=== PATIENT | female | born 1960 | race Caucasian/White ===

== ENCOUNTER 2017-04-19 10:53 | Day surgery (SDC) | payer OTHER ==
[~2017-04-19] VITALS: Ht 137.2 cm; Wt 69.9 kg
[2017-04-19] VITALS (7 sets, daily range): BP systolic 116–158; BP diastolic 61–79; PULSE 62–90; RESP 13–18; Ht 137.2 cm; Wt 69.9 kg
[~2017-04-19 10:53] MED LIST: FENO200 PO; GABA100C14 PO; KETOROLAC 30 MG INJ ONE; LEVO50TA74 PO; LISI-313 PO; METF500T4 PO
[2017-04-19] MEDS ORDERED: CARB15DR BOTH EYES (11:28)
[2017-04-19] MEDS ORDERED: LOSA50TA6 PO (11:29)
[2017-04-19] MEDS ORDERED: LEVO50TA74 PO (11:29)
[2017-04-19] MEDS ORDERED: PRAV40TA76 PO (11:29)
[2017-04-19] MEDS ORDERED: METF500T4 PO (11:30)
[2017-04-19] MEDS ORDERED: EMPA25TA PO (11:30)
[2017-04-19] MEDS ORDERED: SULF1TAB31 PO (11:33)
[2017-04-19] MEDS ORDERED: HYDR-906 PO (11:34)
[2017-04-19] MEDS ORDERED: CHRO1TAB6 PO (11:35)
[2017-04-19] MEDS ORDERED: DEXAMETHASONE 4 MG/ML 1 ML INJ ONE (11:51)
[2017-04-19] MEDS ORDERED: BUPIVACAINE 0.5%/EPI (SDV) 10 ML INJ ONE (11:51)
[2017-04-19] MEDS ORDERED: POVIDONE IODINE 10% 28.4 GM OINT ONE (11:51)
[2017-04-19] MEDS ORDERED: BUPIVACAINE 0.5% (SDV) 30 ML INJ ONE (11:52)
[2017-04-19] MEDS ORDERED: INSULIN ASPART [NOVOLOG] 3 ML PEN SC ONE (12:00)
[2017-04-19] MEDS ORDERED: ONDANSETRON 4 MG INJ IV PRN (12:00)
[2017-04-19] MEDS ORDERED: HYDROmorphONE (0.2 MG/ML) 10ML SYG IV PRN ×2 (12:00)
[2017-04-19] MEDS ORDERED: PROCHLORPERAZINE 10 MG INJ IV PRN (12:00)
[2017-04-19] MEDS ORDERED: hydrALAzine 20 MG INJ IV PRN (12:00)
[2017-04-19] MEDS ORDERED: MEPERIDINE 25 MG INJ IV PRN (12:00)
[2017-04-19] MEDS ORDERED: LABETALOL HCL 20MG INJ IV PRN (12:00)
[2017-04-19] MEDS ORDERED: FENTAnyl 50 MCG/ML VIAL IV PRN (12:00)
[2017-04-19] MEDS ORDERED: HYPOGLYCEMIA PROTOCOL when Glucose is <70 mg/dL or symptomatic <90 mg/dL. XX ONE (12:00)
[2017-04-19] MEDS ORDERED: OXYCODONE/ACETAMINOPHEN (5/325) TAB PO PRN ×2 (12:00)
[2017-04-19] MEDS ORDERED: DIPHENHYDRAMINE 50 MG INJ IV PRN (12:00)
[2017-04-19] MEDS ORDERED: EPHEDrine SULFATE 50 MG/5 ML SYG IV PRN (12:00)
[2017-04-19] MEDS ORDERED: MIDAZOLAM 1 MG/ML 2 ML INJ ONE (12:19)
[2017-04-19] MEDS ORDERED: LIDOCAINE 2% (SDV) 5 ML INJ ONE (12:19)
[2017-04-19] MEDS ORDERED: PROPOFOL 20 ML ONE (12:19)
[2017-04-19] MEDS ORDERED: SCOPOLAMINE 1.5 MG PATCH ONE (12:19)
[2017-04-19] MEDS ORDERED: FENTAnyl 50 MCG/ML VIAL ONE (12:19)
--- NOTE | 2017-04-19 12:28 | HPN ---
Date/Time of Note Date/Time of Note DATE: 04/19/17 TIME: 12:27 Interval H&P Admission Note Pt. seen H&P reviewed: No system changes CHIDI FAY DPM Apr 19, 2017 12:28
[2017-04-19] MEDS ORDERED: GLUCOSE GEL 15 GRAM TUBE BUCCAL PRN (12:30)
[2017-04-19] MEDS ORDERED: DEXTROSE 50% 50 ML SYRINGE IV PRN ×2 (12:30)
[2017-04-19] MEDS ORDERED: GLUCOSE GEL 15 GRAM TUBE PO PRN ×2 (12:30)
[2017-04-19] MEDS ORDERED: GLUCAGON 1 MG INJ IM PRN (12:30)
[2017-04-19] MEDS ORDERED: METOCLOPRAMIDE 10 MG INJ ONE (12:46)
[2017-04-19] MEDS ORDERED: ONDANSETRON 4 MG INJ ONE (12:46)
--- NOTE | 2017-05-03 13:16 | PREOPHP ---
PREOP HISTORY AND PHYSICAL DATE OF ADMISSION: 04/19/2017 HISTORY OF PRESENT ILLNESS: Patient being admitted to the hospital for elective foot surgery, palliative treatment has been unsuccessful. The patient has been explained surgery, complications, alternatives and elected to have elective foot surgery. The patient has pain in the bunion on the right foot and wishes to have it corrected surgically. ALLERGIES: PENICILLIN. MEDICATIONS: She is taking medications for thyroid, diabetes and blood pressure. REVIEW OF SYSTEMS: Being treated for thyroid. Negative heart, lung, liver kidney. Diabetes being treated orally. SOCIAL HISTORY: Negative for smoking and alcohol. PAST MEDICAL HISTORY: See any other pertinent history by Dr. House. PHYSICAL EXAMINATION: EXTREMITIES: Lower extremities: Shows DP and PT equal and regular. NEUROLOGIC: Negative for pathology. DERMATOLOGICAL: Negative for pathology. MUSCULOSKELETAL AND X-RAY FINDINGS: Show a hallux abducto valgus with bunion deformity, right foot. DIAGNOSIS: Hallux abducto valgus with bunion deformity, right foot. Dictated By: Elia Renee DPM /roderick/jackelin /Document#: [id number] KARLY
--- NOTE | 2017-05-08 11:10 | OPR ---
OPERATIVE REPORT DATE OF OPERATION: 04/19/2017 PREOPERATIVE DIAGNOSIS: Hallux abductovalgus with bunion deformity, right foot. POSTOPERATIVE DIAGNOSIS: Hallux abductovalgus with bunion deformity, right foot. OPERATION PERFORMED: Osteotomy and bunionectomy with fixation first metatarsal, right foot. SURGEON: Elia Renee DPM DESCRIPTION OF PROCEDURE: The patient was brought to the surgical suite and placed in the supine position. The patient had a sterile prep and drape. The patient had a tourniquet at the height of the ankle. The findings were consistent with the pre and postop diagnosis. The first incision was a dorsal medial longitudinal incision over the first metatarsophalangeal joint using sharp and blunt dissection. The incision was carried deep. The Bovie was used as necessary. A longitudinal capsulotomy was made and the head of the first metatarsal was freed of its attachment dorsally and medially. The medial protrusion of the first metatarsal was resected and then a horizontal V-osteotomy was made from medial to lateral with the apex distal and the base proximal, going through and through the two cuts, and the capital fragment was freed, moved laterally and impacted upon the shaft. The osteotomy site was then fixated first with a K-wire. That was measured and a 2.5 x 14 headless screw from [employer] was placed over the K-wire and screwed into place. The K-wire was removed. The osteotomy site was solid. The overhang of the first metatarsal was resected. The area was rasped smooth. The preoperative condition having been relieved, the area was then coaptated subcutaneously using 3-0 Vicryl. The skin was coaptated using 5-0 nylon. The area was injected with 0.5 percent Marcaine to prolong anesthesia. A dressing of half-inch Steri-Strips, Betadine ointment, 4 x 4's impregnated with Betadine solution and Donald, with an outer layer of Coban made into a semicompressive dressing. The patient tolerated surgery well and was returned to the recovery room in satisfactory condition. There was minimum blood loss and no complications. Dictated By: Elia Renee DPM /roderick/laly /Document#: [id number] KARLY
== END 2017-04-19 16:00 | disposition home or self-care (01) ==
LOC: SDS 10:53
PROVIDERS: ATTEND Podiatrist
DX: M21.611 Bunion of right foot (principal); E11.9 Type 2 diabetes mellitus without complications; E03.9 Hypothyroidism, unspecified; E78.5 Hyperlipidemia, unspecified; I10 Essential (primary) hypertension; E66.9 Obesity, unspecified; Z68.37 Body mass index [BMI] 37.0-37.9, adult
CPT/HCPCS: 28296; 82962; 88304; 88311; J1885; J2175; J2250; J2405; J2765; J3010; L3260; Z7512; Z7610; J1100; J1815